=== PATIENT | female | born 1995 | race African-American/Black ===

== ENCOUNTER 2023-04-30 12:56 | Inpatient (IN) | payer MEDICAID ==
[2023-04-30] MEDS ORDERED: Nalbuphine 10 MG/0.5 ML Syringe IVPUSH PRN (14:00)
[2023-04-30] MEDS ORDERED: Ondansetron 4 MG/2 ML SDV IVPUSH PRN (14:00)
[2023-04-30] MEDS ORDERED: Oxytocin/Lactated Ringers 10 UNIT/1,000 ML BAG IV SCH ×2 (14:00→18:30)
[2023-04-30 14:27] LABS: BASOPHILS ABSOLUTE AUTO 0.01 K/mm3 (0.01-0.08); BASOPHILS PERCENT AUTO 0.1 % (0.1-1.2); EOSINOPHILS ABSOLUTE AUTO 0.03 K/mm3 (0.04-0.36); EOSINOPHILS PERCENT AUTO 0.4 (0.7-5.8); HEMATOCRIT 38.2 % (34.1-44.9); HEMOGLOBIN 12.6 gm/dl (11.2-15.7); IMMATURE GRAN ABSOLUTE AUTO 0.01 K/mm3 (0.00-0.10); IMMATURE GRAN PERCENT AUTO 0.1 % (<=1.0); LYMPHOCYTES ABSOLUTE AUTO 1.85 K/mm3 (1.18-3.74); LYMPHOCYTES PERCENT AUTO 26.3 % (19.3-51.7); MEAN CORPUSCULAR HEMOGLOBIN 27.4 pg (25.6-32.2); MEAN PLATELET VOLUME 10.6 fl (9.4-12.3); MONOCYTES ABSOLUTE AUTO 0.67 K/mm3 (0.24-0.36); MONOCYTES PERCENT AUTO 9.5 % (4.7-12.5); NEUTROPHILS ABSOLUTE AUTO 4.47 K/mm3 (1.56-6.13); NEUTROPHILS PERCENT AUTO 63.6 % (34.0-71.1); PLATELET COUNT,PLT 224 K/mm3 (182-369); WHITE BLOOD CELL COUNT,WBC 7.04 K/mm3 (3.98-10.04)
[2023-04-30] MEDS: Lactated Ringers 1,000 ML IV SCH ×2 (18:22→20:16)
[2023-04-30] MEDS ORDERED: Bupivacaine/fentaNYL/NS 100 ML Bag EPIDUR PRN (18:36)
[2023-04-30] MEDS ORDERED: diphenhydrAMINE 50 MG/ML SDV IVPUSH PRN (18:36)
[2023-04-30] MEDS ORDERED: fentaNYL 100 MCG/2 ML SDV EPIDUR PRN (18:36)
[2023-04-30] MEDS ORDERED: ePHEDrine 50 MG/ML SDV IVPUSH PRN (18:36)
[2023-05-01] MEDS ORDERED: Ropivacaine 0.2% PF 2 MG/ML 20 ML SDV ONE
[2023-05-01] MEDS ORDERED: Terbutaline 1 MG/ML SDV ONE (00:39)
[2023-05-01] MEDS ORDERED: Sodium Chloride 0.9% 10 ML Syringe FLUSH PRN (00:54)
[2023-05-01] MEDS ORDERED: ceFAZolin 2 GM in Sodium Chloride 0.9% 50 ML IV ONE (00:54)
[2023-05-01] MEDS ORDERED: Citric Acid/Sodium Citrate Solution 30 ML Cup PO ONE (00:54)
[2023-05-01] MEDS ORDERED: Metoclopramide 10 MG/2 ML SDV IVPUSH ONE (00:54)
[2023-05-01] MEDS ORDERED: Lactated Ringers 1,000 ML IV SCH (01:00)
[2023-05-01] MEDS ORDERED: Oxytocin/Lactated Ringers 10 UNIT/1,000 ML BAG IV SCH ×2 (01:00→07:12)
[2023-05-01] MEDS ORDERED: Bupivacaine 0.5% 30 ML SDV ONE (01:01)
[2023-05-01 01:16] LABS: BARBITURATE SCREEN,URINE NEGATIVE (CUTOFF=200); BENZODIAZEPINES SCREEN,URINE NEGATIVE (CUTOFF=150); BUPRENORPHINE SCREEN,URINE NEGATIVE (CUTOFF=10); METHADONE SCREEN, URINE NEGATIVE (CUTOFF=200); METHAMPHETAMINES SCREEN, URINE NEGATIVE (CUTOFF=500); OXYCODONE SCREEN,URINE NEGATIVE (CUT0FF=100); PROPOXYPHENE SCREEN,URINE NEGATIVE (CUTOFF=300); THC SCREEN,URINE 20 NG/ML NEGATIVE (CUTOFF=50)
[2023-05-01 01:27] LABS: AMPHETAMINES SCREEN, URINE NEGATIVE (CUTOFF=500)
[2023-05-01] MEDS ORDERED: Phenylephrine 1% 10 MG/ML SDV ONE (01:31)
[2023-05-01] MEDS ORDERED: Oxytocin 10 Units/1 ML SDV ONE ×2 (01:31→01:44)
[2023-05-01] MEDS ORDERED: ceFAZolin 2 GM Vial ONE (01:31)
[2023-05-01] MEDS ORDERED: Ketorolac 30 MG/ML SDV ONE (01:50)
[2023-05-01] MEDS ORDERED: Ondansetron 4 MG/2 ML SDV ONE (01:50)
[2023-05-01] MEDS ORDERED: Meperidine 50 MG/ML Vial IVPUSH PRN (02:20)
[2023-05-01] MEDS ORDERED: diphenhydrAMINE 50 MG/ML SDV IVPUSH PRN ×2 (02:20→07:12)
[2023-05-01] MEDS ORDERED: fentaNYL 100 MCG/2 ML SDV IVPUSH PRN (02:20)
[2023-05-01] MEDS ORDERED: Ondansetron 4 MG/2 ML SDV IVPUSH PRN (02:20)
[2023-05-01] MEDS ORDERED: Dextrose 5%-Lactated Ringers 1,000 ML IV SCH (07:12)
[2023-05-01] MEDS ORDERED: Magnesium Hydroxide 400 MG/5 ML Susp 30 ML Cup PO PRN (07:12)
[2023-05-01] MEDS ORDERED: Naloxone 0.4 MG/ML SDV IVPUSH PRN (07:12)
[2023-05-01] MEDS ORDERED: ePHEDrine 50 MG/ML SDV IVPUSH PRN (07:12)
[2023-05-01] MEDS: Ketorolac 30 MG/ML SDV IVPUSH SCH ×3 (07:56→21:18)
[2023-05-01] MEDS: Acetaminophen/oxyCODONE 325-5 MG Tab PO PRN ×3 (07:57→22:56)
[2023-05-01] MEDS: Prenatal Multivitamin with Calcium/Folic Acid/Iron Tab PO SCH (08:00)
[2023-05-01] MEDS: Simethicone 80 MG Tab.Chew PO SCH ×4 (08:01→22:56)
[2023-05-01] MEDS: Docusate Sodium 100 MG Cap PO SCH ×2 (08:01→22:56)
[2023-05-01 08:47] LABS: BASOPHILS ABSOLUTE AUTO 0.01 K/mm3 (0.01-0.08); BASOPHILS PERCENT AUTO 0.1 % (0.1-1.2); EOSINOPHILS PERCENT AUTO 0 (0.7-5.8); HEMATOCRIT 30.7 % (34.1-44.9); HEMOGLOBIN 9.9 gm/dl (11.2-15.7); IMMATURE GRAN ABSOLUTE AUTO 0.02 K/mm3 (0.00-0.10); IMMATURE GRAN PERCENT AUTO 0.2 % (<=1.0); LYMPHOCYTES ABSOLUTE AUTO 1.66 K/mm3 (1.18-3.74); LYMPHOCYTES PERCENT AUTO 13.4 % (19.3-51.7); MEAN CORPUSCULAR HEMOGLOBIN 26.9 pg (25.6-32.2); MEAN CORPUSCULAR HGB CONC 32.2 g/dl (32.2-35.5); MEAN CORPUSCULAR VOLUME 83.4 fl (79.4-94.8); MEAN PLATELET VOLUME 11.2 fl (9.4-12.3); MONOCYTES PERCENT AUTO 6.5 % (4.7-12.5); NEUTROPHILS ABSOLUTE AUTO 9.86 K/mm3 (1.56-6.13); NEUTROPHILS PERCENT AUTO 79.8 % (34.0-71.1); PLATELET COUNT,PLT 173 K/mm3 (182-369); RED BLOOD CELL COUNT 3.68 M/mm3 (3.98-5.22); WHITE BLOOD CELL COUNT,WBC 12.35 K/mm3 (3.98-10.04)
[2023-05-01] MEDS ORDERED: Sodium Chloride 0.9% 10 ML Syringe FLUSH SCH (09:00)
[2023-05-02] MEDS: Acetaminophen/oxyCODONE 325-5 MG Tab PO PRN ×2 (04:01→13:18)
[2023-05-02] MEDS: Ibuprofen 600 MG Tab PO PRN ×3 (04:01→21:51)
[2023-05-02 06:29] LABS: BASOPHILS ABSOLUTE AUTO 0.01 K/mm3 (0.01-0.08); BASOPHILS PERCENT AUTO 0.1 % (0.1-1.2); EOSINOPHILS ABSOLUTE AUTO 0.02 K/mm3 (0.04-0.36); EOSINOPHILS PERCENT AUTO 0.2 (0.7-5.8); HEMATOCRIT 31.1 % (34.1-44.9); HEMOGLOBIN 9.9 gm/dl (11.2-15.7); IMMATURE GRAN ABSOLUTE AUTO 0.01 K/mm3 (0.00-0.10); IMMATURE GRAN PERCENT AUTO 0.1 % (<=1.0); LYMPHOCYTES ABSOLUTE AUTO 2.28 K/mm3 (1.18-3.74); LYMPHOCYTES PERCENT AUTO 18.9 % (19.3-51.7); MEAN CORPUSCULAR HEMOGLOBIN 26.7 pg (25.6-32.2); MEAN CORPUSCULAR HGB CONC 31.8 g/dl (32.2-35.5); MEAN CORPUSCULAR VOLUME 83.8 fl (79.4-94.8); MEAN PLATELET VOLUME 11.9 fl (9.4-12.3); MONOCYTES ABSOLUTE AUTO 0.86 K/mm3 (0.24-0.36); MONOCYTES PERCENT AUTO 7.1 % (4.7-12.5); NEUTROPHILS ABSOLUTE AUTO 8.87 K/mm3 (1.56-6.13); NEUTROPHILS PERCENT AUTO 73.6 % (34.0-71.1); PLATELET COUNT,PLT 184 K/mm3 (182-369); RED BLOOD CELL COUNT 3.71 M/mm3 (3.98-5.22); WHITE BLOOD CELL COUNT,WBC 12.05 K/mm3 (3.98-10.04)
[2023-05-02] MEDS: Docusate Sodium 100 MG Cap PO SCH ×2 (09:15→21:51)
[2023-05-02] MEDS: Simethicone 80 MG Tab.Chew PO SCH ×3 (09:15→21:52)
[2023-05-02] MEDS: Prenatal Multivitamin with Calcium/Folic Acid/Iron Tab PO SCH (09:15)
[2023-05-03] MEDS ORDERED: Magnesium Hydroxide 400 MG/5 ML Susp 30 ML Cup PO PRN (07:47)
[2023-05-03 08:54] LABS: APPEARANCE,URINE CLEAR (Clear); BILIRUBIN,URINE NEGATIVE (Negative); COLOR,URINE YELLOW (Yellow); GLUCOSE,URINE NEGATIVE (Negative); KETONES,URINE NEGATIVE (Negative); LEUKOCYTE ESTERASE,URINE NEGATIVE (Negative); NITRITE,URINE NEGATIVE (Negative); OCCULT BLOOD,URINE 2+ (Negative); PROTEIN,URINE NEGATIVE (Negative); UROBILINOGEN,URINE 0.2 (0.2-1.0)
[2023-05-03] MEDS: Ibuprofen 600 MG Tab PO PRN (11:24)
[2023-05-03] MEDS: Simethicone 80 MG Tab.Chew PO SCH (11:24)
[2023-05-03 11:43] LABS: BACTERIA,URINE RARE /hpf (FEW); MUCUS,URINE NOT SEEN /hpf (FEW); WBC,URINE 0-5 /hpf (0-5)
== END 2023-05-03 13:12 | disposition home or self-care (01) | DRG 788 ==
LOC: JD.OBCHECK 12:56 → JD.OB 13:13 → OBSVTOIN 05-01 01:29 → JD.OB 05-01 01:30
PROVIDERS: ADMIT Obstetrics & Gynecology; ATTEND Obstetrics & Gynecology
PROC: 10D00Z1 Extraction of Products of Conception, Low, Open Approach (ICD-10-PCS; principal; 2023-05-01)
PROC: 10H07YZ Insertion of Other Device into Products of Conception, Via Natural or Artificial Opening (ICD-10-PCS; 2023-05-01)
PROC: 3E0R3BZ Introduction of Anesthetic Agent into Spinal Canal, Percutaneous Approach (ICD-10-PCS; 2023-05-01)
PROC: 00HU33Z Insertion of Infusion Device into Spinal Canal, Percutaneous Approach (ICD-10-PCS; 2023-05-01)
DX: O42.92 Full-term premature rupture of membranes, unspecified as to length of time between rupture and onset of labor (principal); O99.214 Obesity complicating childbirth; O76 Abnormality in fetal heart rate and rhythm complicating labor and delivery; Z37.0 Single live birth; Z3A.39 39 weeks gestation of pregnancy; Z87.891 Personal history of nicotine dependence
CPT/HCPCS: 36415; 51702; 59025; 80306; 81001; 82947; 84112; 85025; 86592; 86850; 86900; 86901; A9270-GY; J0690; J1885; J2300; J2370; J2405; J2590; J2765; J2795; J3105; J3490; J7120